=== PATIENT | male | born 1970 | race Caucasian/White ===

== ENCOUNTER → 2024-11-24 | Outpatient (CLI) | payer BC ==
--- NOTE | 2024-11-24 10:13 | US ---
EXAMINATION TYPE: US liver DATE OF EXAM: 11/24/2024 COMPARISON: CT 2014 CLINICAL INDICATION: Male, 54 years old with history of R79.89 OTHER SPECIFIED ABNORMAL FINDINGS OF B LOOD; Elevated LFTs TECHNIQUE: Grayscale and color Doppler imaging of the right upper quadrant was performed. FINDINGS: EXAM MEASUREMENTS: Liver Length: 15.2 cm Gallbladder Wall: 0.47 cm CBD: obscured Right Kidney: 12.1 x 5.5 x 5.4 cm ALUMINUM BOATS ASSEMBLER NOTES:Exam is very limited due to gas Pancreas: Obscured by gas Liver: *Increased echogenicity and attenuation, difficult to image. Most images taken intercostal. L imited. Gallbladder: Wall appears thick. GB measures 9.5 cm in length. Evidence for sonographic Aguilar's sign: No CBD: obscured Right Kidney: No hydronephrosis or masses seen IMPRESSION: 1. Thickened gallbladder wall with distention, tourism radio presenter reports a negative sonographic Aguilar's s ign however correlate for cholecystitis. 2. Hepatic steatosis. [facility], , 11/24/2024 10:11 AM
--- NOTE | 2024-11-24 10:19 | US ---
EXAMINATION TYPE: US abdomen limited DATE OF EXAM: 11/24/2024 COMPARISON: CT 2014 CLINICAL INDICATION: Male, 54 years old with history of R79.89 other specified abnormal findings of b lood; Other specified abnormal findings of blood TECHNIQUE: Multiple sonographic images of the left upper quadrant are obtained. FINDINGS: EXAM MEASUREMENTS: Spleen: 10.9 cm Left Kidney: 12.6 x 5.7 x 6.0 cm ACCOUNT DEVELOPMENT REPRESENTATIVE NOTES: Exam is limited due to gas 1. Spleen: Limited, no abnormality seen 2. Left Kidney: Slightly enlarged. *2 complex areas seen, area at lower pole measures: 2.3 x 2.6 x 2.2 cm. -Area at mid pole measures: 1.9 x 1.9 x 1.2 cm. IMPRESSION: No evidence for acute process. 2. Left renal cortical hypoechoic lesions favored represent cysts. Consider MRI or CT renal mass prot ocol for complete characterization as these have some internal debris suggested. [facility], , 11/24/2024 10:16 AM
== END | disposition home or self-care (01) ==
LOC: RADUSWWP 09:25
PROVIDERS: ATTEND Family Medicine
DX: K82.8 Other specified diseases of gallbladder (principal); N28.89 Other specified disorders of kidney and ureter; K76.0 Fatty (change of) liver, not elsewhere classified; R94.5 Abnormal results of liver function studies
CPT/HCPCS: 76705